=== PATIENT | female | born 1965 | race Two or more races ===

== ENCOUNTER 2025-09-14 19:39 | Emergency (ER) | payer MEDICAID, OTHER ==
[~2025-09-14] VITALS: Ht 170.2 cm; Wt 67.6 kg
--- NOTE | 2025-09-14 21:06 | DVH ---
CLINICAL INDICATION: right shoulder pain TECHNIQUE: XYXY R SHOULDER 2+ VIEW XRAY COMPARISON: None FINDINGS/IMPRESSION: : Mildly displaced oblique or spiral type fracture of the mid to distal clavicular shaft. Mild superior displacement of the distal fragment. AC joint appears congruent.
--- NOTE | 2025-09-14 21:07 | DVH ---
CLINICAL INDICATION: left wrist pain TECHNIQUE: XYXY L WRIST 3+ VIEW XRAY COMPARISON: None FINDINGS/IMPRESSION: : There is no evidence of acute fracture or dislocation. 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 Remote / healed fracture deformity of the distal radius. Soft tissues are unremarkable.
[2025-09-14] MEDS ORDERED: ACE3T PO (23:12)
--- NOTE | 2025-09-14 23:14 | ED.PDOC ---
Musculoskeletal HPI Comments 59 year old female presents to ER with complaints of fall injury x 1 day. Patient states she tripped and fell and landed on her right shoulder onto [place] at 6 a.m. prior to arrival to ER and has since been experiencing 9/10 right shoulder pain. Patient also reports mild pain to left wrist post fall, denying head injury/LOC and denies any other reported injuries. Patient presents to ER ambulatory on arrival, with steady gait, in mild d istress. Denies numbness/tingling, shortness of breath, chest pain, neck pain or any further symptoms/complaints Chief Complaint: Upper Extremity Time Seen by MD: 20:03 Primary Care Provider: NIKOLAI LAUREN JR Reviewed Notes: Nurses Notes, Medications, Allergies Allergies: Uncoded Allergies: SULFA (Allergy, Unknown, 09/14/25) Home Meds Active Scripts Acetaminophen W/ Codeine (Tylenol W/Cod #3) 1 Tab Tb, 1 TAB PO Q6HPRN, #10 TAB 0 Refills Prov:SUSANNAH MOLINA 09/14/25 Information Source: Patient Mode of Arrival: Ambulatory Past Medical History Past Medical History (Other): LEFT RADIUS FX Surgical History: Denies all surgeries LOSS PREVENTION LEAD History: No Pertinent LOSS PREVENTION LEAD History Family History Family History: Unknown Social History Smoker: Non-Smoker Alcohol: Denies ETOH Use Drugs: Denies Drug Use Lives In: Home Constitutional: denies: chills, diaphoresis, fatigue, fever, malaise, sweats, weakness, others EENTM: denies: blurred vision, double vision, ear bleeding, ear discharge, ear drainage, ear pain, ear ringing, eye pain, eye redness, hearing loss, mouth pain, mouth swelling, nasal discharge, nose bleeding, nose congestion, nose pain, photophobia, tearing, throat pain, throat swelling, voice changes, others Respiratory: denies: cough, hemoptysis, orthopnea, SOB at rest, shortness of breath, SOB with excertion, stridor, wheezing, others Cardiovascular: denies: chest pain, dizzy spells, diaphoresis, Dyspnea on exertion, edema, irregular heart beat, left arm pain, lightheadedness, palpitations, PND, syncope, others Gastrointestinal: denies: abdomen distended, abdominal pain, blood streaked bowels, constipated, diarrhea, dysphagia, difficulty swallowing, hematemesis, melena, nausea, poor appetite, poor fluid intake, rectal bleeding, rectal pain, vomiting, others Genitourinary: denies: abnormal vagina bleeding, burning, dyspareunia, dysuria, flank pain, frequency, hematuria, incontinence, pain, , vagina discharge, urgency, others Neurological: denies: dizziness, fainting, headache, left sided numbness, left sided weakness, numbness, paresthesia, pre-existing deficit, right sided numbness, right sided weakness, seizure, speech problems, tingling, tremors, weakness, others Musculoskeletal: reports: others (As stated in HPI) Integumetry: denies: bruises, change in color, change in hair/nails, dryness, laceration, lesions, lumps, rash, wounds, others Allergic/Immunocompromised: denies: Difficulty Healing, Frequent Infections, Hives, Itching, others Hematologic/Lymphatic: denies: anemia, blood clots, easy bleeding, easy bruising, swollen glands, others Endocrine: denies: excessive hunger, excessive sweating, excessive thirst, excessive urination, flushing, intolerance to cold, intolerance to heat, unexplained weight gain, unexplained weight loss, others Psychiatric: denies: anxiety, bipolar disorder, depression, hopeless, panic disorder, schizophrenia, sleepless, suicidal, others Physical Exam General Appearance: Mild Distress HEENT: Normal ENT Inspection, PERRL/EOMI, Pharynx Normal, TMs Normal Neck: Full Range of Motion, Non-Tender, Normal Respiratory: Chest Non-Tender, Lungs Clear, No Accessory Muscle Use, No Respiratory Distress, Normal Breath Sounds Cardiovascular: No Murmur, No Gallop, Regular Rate/Rhythm Breast Exam: Deferred Gastrointestinal: Non Tender, No Pulsatile Mass, Soft Genitalia: Deferred Pelvic: Deferred Rectal: Deferred Extremities: Decreased range of motion (Right shoulder due to pain localized to right mid clavicle), Normal capillary refill Musculoskeletal : Extremity Location: Clavicle (TTP/mild swelling to right mid clavicle noted. No skin tenting/further skin changes noted. No other TTP to right upper extremity noted. Pulses intact), Wrist (Slight TTP centralized to left wrist noted. No swelling/skin changes noted. Pulses intact) Neurologic: Alert, No Motor Deficits, No Sensory Deficits Cerebellar Function: Normal Reflexes: Normal Skin: Dry, Normal Color, Warm Peripheral Pulses: 2+ carotid (R), 2+ carotid (L), 2+ Radial (R), 2+ Radial (L) , 2+ Brachial (R), 2+ Brachial (L) Lymphatic: No Adenopathy Was a procedure done? Was a procedure done?: No Sedation Sedation?: No Differential Diagnosis EXT Differential Diagnosis: Dislocation, Laceration, Neurovascular injury, Other (closed head injury) X-Ray, Labs, Meds, VS Vital Signs Date Time Temp Pulse Resp B/P (MAP) Pulse Ox O2 Delivery O2 Flow Rate FiO2 09/14/25 19:42 98.3 110 18 134/96 96 98.3 PATIENT: DALE YOT: [id number] UNIT: [id number] : 1965 LOC: ER ROOM / BED: / AGE / SEX: 59 / F ADM STATUS: REG ER SERVICE 02 ORDERING PHYSICIAN: SUSANNAH MOLINA PROCEDURE(s): LWRI - L WRIST 3+ VIEW XRAY REASON: left wrist pain ORDER NUMBER(s): [id number], ACCESSION NUMBER(s): [id number] CLINICAL INDICATION: left wrist pain TECHNIQUE: XYXY L WRIST 3+ VIEW XRAY COMPARISON: None FINDINGS/IMPRESSION: : There is no evidence of acute fracture or dislocation. 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 Remote / healed fracture deformity of the distal radius. Soft tissues are unremarkable. ATED BY: SHANTE DANIELLE MD DICTATED DATE/TIME: 09/14/252104 SIGNED BY: SHANTE DANIELLE MD SIGNED DATE/TIME: 09/14/252104 CC: PATIENT: DALE YO: [id number] UNIT: [id number] : 1965 LOC: ER ROOM / BED: / AGE / SEX: 59 / F ADM STATUS: REG ER SERVICE 02 ORDERING PHYSICIAN: SUSANNAH MOLINA PROCEDURE(s): RSHD2 - R SHOULDER 2+ VIEW XRAY REASON: right shoulder pain ORDER NUMBER(s): [id number], ACCESSION NUMBER(s): [id number] CLINICAL INDICATION: right shoulder pain TECHNIQUE: XYXY R SHOULDER 2+ VIEW XRAY COMPARISON: None FINDINGS/IMPRESSION: : Mildly displaced oblique or spiral type fracture of the mid to distal clavicular shaft. Mild superior displacement of the distal fragment. AC joint appears congruent. ATED BY: SHANTE DANIELLE MD DICTATED DATE/TIME: 09/14/252103 SIGNED BY: SHANTE DANIELLE MD SIGNED DATE/TIME: 09/14/252103 CC: Right shoulder x-ray reviewed Left wrist x-ray reviewed Right arm sling applied [place] 5/325 mg p.o. ordered Zofran 4 mg p.o. ordered Patient neurovascularly intact and reported improvement in symptoms prior to discharge Advised on elevation and alternate ice on/off as needed for pain/swelling Advised to follow up with PCP and orthopedics in 1-2 days Patient verbalized understanding and agreeable with current plan of care Advised to return to ER immediately if symptoms worsen Images Reviewed?: Images reviewed and evaluated by me Time of 1ST Reevaluation: 22:54 Reevaluation 1ST: N/A Patient Education/Counseling: Diagnosis, Treatment, Prognosis, Need For Follow Up Family Education/Counseling: No Family Present Departure 1 Departure Time of Disposition: 23:10 Impression: Primary Impression: Fracture of right clavicle Qualified Codes: S42.001A - Fracture of unspecified part of right clavicle, initial encounter for closed fracture Additional Impressions: Sprain of wrist, left Qualified Codes: S63.502A - Unspecified sprain of left wrist, initial encounter Hx of fracture of radius Disposition: 01 HOME / SELF CARE / HOMELESS Condition: Stable e-Prescriptions Acetaminophen W/ Codeine (Tylenol W/Cod #3) 1 Tab Tb 1 TAB PO Q6HPRN, #10 TAB 0 Refills Prov: SUSANNAH MOLINA 09/14/25 Discharged With: Friend Critical Care Note Critical Care Time?: No Stability Stability form required: No Heart Score Heart Score: Heart Score Response (Comments) Value History N/A 0 EKG N/A 0 Age N/A 0 Risk Factors N/A 0 Troponin N/A 0 Total 0 SUSANNAH MOLINA Sep 14, 2025 23:14
[2025-09-14 23:37] VITALS: BP 111/80; PULSE 110; RESP 18; TEMP 98.8; O2SAT 98
[2025-09-14] MEDS: ONDANSETRON ODT 4 MG TAB PO ONE (23:41)
[2025-09-14] MEDS: HYDROcodone-ACET 5/325MG TAB PO ONE (23:41)
== END 2025-09-14 23:46 | disposition home or self-care (01) ==
LOC: ER 19:39
DX: S42.021A Displaced fracture of shaft of right clavicle, initial encounter for closed fracture (principal); S63.502A Unspecified sprain of left wrist, initial encounter; Z87.81 Personal history of (healed) traumatic fracture; Z88.2 Allergy status to sulfonamides; W01.0XXA Fall on same level from slipping, tripping and stumbling without subsequent striking against object, initial encounter; Y93.89 Activity, other specified; Y92.89 Other specified places as the place of occurrence of the external cause; Y99.8 Other external cause status
CPT/HCPCS: 73030; 73110; 99284; Q0162